=== PATIENT | male | born 1955 | race Caucasian/White ===

== ENCOUNTER 2021-02-04 06:05 | Outpatient (CLI) | payer OTHER ==
[~2021-02-04] VITALS: Ht 157.5 cm; Wt 58.5 kg
[~2021-02-04 06:05] MED LIST: ADVIL200 M1 PO; ASA81BEC PO; LISINOPRIL20 MG PO
[2021-02-04 07:30] VITALS: BP 146/93
[2021-02-04 12:50] LABS: CLARITY TURBID; COLOR RED; TOTAL VOLUME 10 mL
[2021-02-04 12:51] LABS: SOURCE LUL
[2021-02-04 13:17] LABS: BF NUCLEATED CELLS 2777 /mm3; BF RBC 903066 /mm3
[2021-02-04 15:17] LABS: BF MACROPHAGE 7 %
[2021-02-04 15:19] LABS: BF NEUTROPHILS 56 %
--- NOTE | 2021-02-06 17:06 | PATH ---
[facility] [address] [place] [address] PATHOLOGY RPT PROCEDURE Name: CONTRERAS OBRIEN Room #: DEP RAHEL M.R.#: [id number] Admission: 02/04/21 Date of : 59 Discharge: 02/04/21 Report #: [id number] Path Case #: [id number] Note [facility] Accession Number: [id number] TESTS RESULT FLAG UNITS REF RANGE LAB Clinician Provided Cytology Information No. of containers..01 Other (Miscellaneous) Source: CAPRICE HILAR BAL DIAGNOSIS: CAPRICE HILAR BAL NEGATIVE FOR MALIGNANT EPITHELIAL CELLS. PULMONARY MACROPHAGES PRESENT, INDICATIVE OF LOWER RESPIRATORY TRACT SAMPLING. SCANT CELLULARITY. Pathologist ICD10: 02 C34.92 Signed out by: 02 Mary Lou Nunez MD, Pathologist NPI- [id number] Performed by: Yaya Muñoz, Disease Intervention Specialist ([facility]) Gross description: 01 5ML, CLOUDY RED, 1TP /LCS 02/05/2021 0013 Local FLAG LEGEND: L-Low Normal,H-High Normal,LL-Alert Low,HH-Alert High <-Panic Low,>-Panic High,A-Abnormal,AA-Critical Abnormal Performed at: [address] [place] [address] Zeeshan Stack MD, [address] [address] Mary Lou Nunez MD, Specimen Comment: A courtesy copy of this report has been sent to [phone] Specimen Comment: Report sent to Performed at: [address], [place], [place] [id number] MD Zeeshan Stack MD Phone: [phone]
--- NOTE | 2021-02-06 17:06 | PATH ---
[facility] [address] [place] [address] PATHOLOGY RPT PROCEDURE Name: CONTRERAS OBRIEN Room #: DEP RAHEL M.R.#: [id number] Admission: 02/04/21 Date of : 59 Discharge: 02/04/21 Report #: [id number] Path Case #: [id number] Note [facility] Accession Number: [id number] TESTS RESULT FLAG UNITS REF RANGE LAB Clinician Provided Cytology Information No. of containers..01 Other (Miscellaneous) Source: CAPRICE CYTO BRUSHING DIAGNOSIS: CAPRICE CYTO BRUSHING INCONCLUSIVE. ATYPICAL SMALL BLUE CELLS; SCANT CELLULARITY. MARKED AIR-DRYING ARTIFACT LIMITING INTERPRETATION. RARE GROUPS OF REACTIVE BROCHIAL EPITHELIAL CELLS IDENTIFIED. Pathologist ICD10: 02 C34.92 Signed out by: Mary Lou Nunez MD, Pathologist NPI- [id number] Performed by: Yaya Muñoz, Paintings Conservator ([facility]) Gross description: Yaya TAMEZ /TORIN 02/05/2021 0021 Local FLAG LEGEND: L-Low Normal,H-High Normal,LL-Alert Low,HH-Alert High <-Panic Low,>-Panic High,A-Abnormal,AA-Critical Abnormal Performed at: [address] [place] [address] Zeeshan Stack MD, [address] [address] Mary Lou Nunez MD, Specimen Comment: A courtesy copy of this report has been sent to [phone] Specimen Comment: Report sent to Performed at: [address], [place], [place] [id number] MD Zeeshan Stack MD Phone: [phone]
--- NOTE | 2021-02-06 17:06 | PATH ---
[facility] [address] [place] [address] PATHOLOGY RPT PROCEDURE Name: CONTRERAS OBRIEN Room #: DEP RAHEL M.R.#: [id number] Admission: 02/04/21 Date of : 59 Discharge: 02/04/21 Report #: [id number] Path Case #: [id number] Note [facility] Accession Number: [id number] TESTS RESULT FLAG UNITS REF RANGE LAB Clinician Provided Cytology Information No. of containers..01 Other (Miscellaneous) Source: CAPRICE CYTOBRUSH TIP DIAGNOSIS: CAPRICE CYTOBRUSH TIP INCONCLUSIVE. RARE ATYPICAL SMALL BLUE CELLS; SCANT CELLULARITY BACKGROUND OF REACTIVE BRONCHIAL EPITHELIAL CELLS AND INFLAMMATORY CELLS. Pathologist ICD10: 02 C34.92 Signed out by: 02 Mary Lou Nunez MD, Pathologist NPI- [id number] Performed by: Yaya Muñoz, Sheep Farmer ([facility]) Gross description: 01 18ML, CLOUDY COLORLES, 1TP /LCS 02/05/2021 0017 Local FLAG LEGEND: L-Low Normal,H-High Normal,LL-Alert Low,HH-Alert High <-Panic Low,>-Panic High,A-Abnormal,AA-Critical Abnormal Performed at: [address] [place] [address] Zeeshan Stack MD, [address] [address] Mary Lou Nunez MD, Specimen Comment: A courtesy copy of this report has been sent to [phone] Specimen Comment: Report sent to Performed at: [address], [place], [place] [id number] MD Zeeshan Stack MD Phone: [phone]
--- NOTE | 2021-02-06 17:06 | PATH ---
[facility] [place] [address] PATHOLOGY RPT PROCEDURE Name: CONTRERAS OBRIEN Room #: DEP [facility] M..#: [id number] Admission: 02/04/21 Date of : 59 Discharge: 02/04/21 Report #: [id number] Path Case #: [id number] Note [facility] Accession Number: [id number] TESTS RESULT FLAG UNITS REF RANGE LAB Clinician Provided Cytology Information No. of containers..01 Other (Miscellaneous) Source: [A] 01 LEFT HILAR TBNA DIAGNOSIS: [A] 02 LEFT HILAR TBNA POSITIVE FOR MALIGNANT CELLS. UNDIFFERENTIATED SMALL CELL CARCINOMA IS PRESENT. THIS INTERPRETATION INCLUDES EVALUATION OF A CELL BLOCK. NO DEFINITE LYMPHOID TISSUE PRESENT. Comment: Abundant small blue cells are identified on the cell block material. Mulitple properly controlled immunohistochemical stains are performed on the cell block. The cells show strong nuclear reactivity with TTF-1, perinuclear dot-like reactivity with AE1/AE3, granular reactivity with synaptophysin and is non-reactive to CD45 as well as p63. Findings support small cell carcinoma. Lack of CD45 reactivity also supports lack of lymphoid tissue within the sample. This case was coreviewed by Dr. Stacy Sierra who concurs with my diagnosis. Findings of this case are discussed with Dr. Nugent at 3:03 pm on 02/06/21. Pathologist ICD10: 02 C34.92 Signed out by: Mary Lou Nunez MD, Pathologist NPI- [id number] Performed by: Shona Muñoz, Junior Financial Analyst ([facility]) Gross description: 11 ML, CLOUDY RED, 1CB /LCS 02/05/2021 0009 Local FLAG LEGEND: L-Low Normal,H-High Normal,LL-Alert Low,HH-Alert High <-Panic Low,>-Panic High,A-Abnormal,AA-Critical Abnormal Performed at: 01 [facility] [address] [place] [address] Zeeshan Stack MD, 02 [facility] [address] [place] [address] PATHOLOGY RPT PROCEDURE Name: CONTRERAS OBRIEN Room #: DEP RAHEL Brizuela#: [id number] Admission: 02/04/21 Date of : 59 Discharge: 02/04/21 Report #: [id number] Path Case #: [id number] [address] [facility] [place] [address] Mary Lou Nunez MD, Specimen Comment: A courtesy copy of this report has been sent to [phone] Specimen Comment: Report sent to Performed at: [address] [facility] [address], [place], [place] [id number] MD Zeeshan Stack MD Phone: [phone]
== END 2021-02-04 10:10 | disposition home or self-care (01) ==
LOC: PUL 06:05 → TBA 06:11 → PUL 08:05 → EDSTATUS 08:06 → PUL 10:10
PROVIDERS: ATTEND Pediatrics
DX: R91.8 Other nonspecific abnormal finding of lung field (principal); C34.92 Malignant neoplasm of unspecified part of left bronchus or lung; I10 Essential (primary) hypertension; F17.210 Nicotine dependence, cigarettes, uncomplicated; Z98.890 Other specified postprocedural states; Z79.899 Other long term (current) drug therapy; Z86.73 Personal history of transient ischemic attack (TIA), and cerebral infarction without residual deficits
CPT/HCPCS: 62110; 62900; 70005